=== PATIENT | female | born 1980 | race Caucasian/White ===

== ENCOUNTER 2022-04-11 15:15 | Inpatient (IN) | payer BC ==
[~2022-04-11] VITALS: Ht 157.5 cm; Wt 85.3 kg
[2022-04-11] MEDS ORDERED: LR 1,000 ML IV ONE (15:45)
[2022-04-11] MEDS ORDERED: NALBUPHINE HCL 10 MG/ML AMP IVP PRN (15:45)
[2022-04-11] MEDS ORDERED: DINOPROSTONE 10 MG SUPP VG ONE (15:45)
[2022-04-11] MEDS ORDERED: TERBUTALINE SULFATE 1 MG/ML VIAL SUBCUT ONE (15:45)
[2022-04-11] MEDS ORDERED: AMPICILLIN SODIUM 2 GM in NS 100 ML IV ONE (15:45)
[2022-04-11 16:26] LABS: BASOPHILS % (AUTO) 0.2 % (0.0-2.0); EOSINOPHILS # (AUTO) 0.1 K/uL (0.0-0.4); HEMATOCRIT 35.8 % (36-48); HEMOGLOBIN 12.3 g/dL (12.0-16.0); LYMPHOCYTES # (AUTO) 1.1 K/uL (1.0-5.5); LYMPHOCYTES % (AUTO) 13.1 % (20.5-51.5); MEAN CORPUSCULAR HEMOGLOBIN 31 pg (27-31); MEAN CORPUSCULAR HGB CONC 34 % (32-36); MEAN CORPUSCULAR VOLUME 91 fL (79.0-98.0); MONOCYTES # (AUTO) 0.4 K/uL (0.0-1.0); NEUTROPHILS # (AUTO) 6.8 K/uL (1.8-7.7); NEUTROPHILS % (AUTO) 80.7 % (40.0-70.0); PLATELET COUNT (AUTO) 174 K/uL (130-430); RED BLOOD CELL COUNT(AUTO) 3.96 MIL/uL (4.2-6.2); RED CELL DISTRIBUTION WIDTH 13.3 % (9.0-15.0); WHITE BLOOD COUNT (AUTO) 8.4 K/uL (4.8-10.8)
[2022-04-11 18:00] VITALS: BP_SYST 119
[2022-04-11] MEDS: LR 1,000 ML IV SCH ×2 (19:09→23:03)
[2022-04-11] MEDS ORDERED: TEMAZEPAM 15 MG CAPSULE PO PRN (22:15)
[2022-04-12] MEDS: OXYTOCIN/0.9 % SODIUM CHLORIDE 1,000 ML IV SCH (05:15)
[2022-04-13] MEDS: OXYTOCIN/0.9 % SODIUM CHLORIDE 1,000 ML IV SCH (03:03)
[2022-04-13] MEDS: LR 1,000 ML IV SCH (06:56)
[2022-04-13] MEDS ORDERED: fentaNYL CITRATE/PF 100 MCG/2 ML AMP ONE ×2 (13:39→20:06)
[2022-04-13] MEDS ORDERED: ROPIVACAINE HCL/PF 0.2% 200 ML ONE (13:40)
[2022-04-13] MEDS ORDERED: FENT2mCg/mL-ROPIVA0.2%/NS EPID 200 ML EP SCH (13:45)
[2022-04-13] MEDS ORDERED: DIPHENHYDRAMINE INJ 50 MG/ML VIAL IVP PRN ×2 (13:45→20:00)
[2022-04-13] MEDS ORDERED: ONDANSETRON HCL 4 MG/2 ML VIAL IVP PRN ×3 (13:45→20:00)
[2022-04-13] MEDS: AMPICILLIN SODIUM 1 GM in NS 50 ML IV SCH ×2 (14:36→18:15)
[2022-04-13] MEDS ORDERED: BUPIVACAINE /PF 0.5% 30 ML VIAL ONE (16:13)
[2022-04-13] MEDS ORDERED: CEFAZOLIN 2 GM IVPB PREMIX 50 ML IV ONE (18:30)
[2022-04-13] MEDS ORDERED: LR 1,000 ML IV SCH (19:30)
[2022-04-13] MEDS ORDERED: OXYCODONE/ACETAMINOPHEN 5-325 TABLET PO PRN (19:30)
[2022-04-13] MEDS ORDERED: TEMAZEPAM 15 MG CAPSULE PO PRN (19:30)
[2022-04-13] MEDS ORDERED: ANUSOL 1 EA SUPP.RECT (PREPARATION H) RC PRN (19:30)
[2022-04-13] MEDS ORDERED: MEASLES,MUMPS&RUBELLA VACC/PF 12500 UNIT/0.5 ML VIAL SUBQ PRN (19:30)
[2022-04-13] MEDS ORDERED: DIPHTH,PERTUSS(ACELL),TET VAC 0.5 ML VIAL (Tdap) I.M. PRN (19:30)
[2022-04-13] MEDS ORDERED: HYDROcodone/ACETAMIN 5-325 MG TAB (NORCO/ VICODIN) PO PRN (19:30)
[2022-04-13] MEDS ORDERED: RHO(D) IMMUNE GLOBULIN/MALTOSE 1500 UNITS/1.3 ML (WINHRO) IM PRN (19:30)
[2022-04-13] MEDS ORDERED: OXYCODONE/ACETAMINOPHEN *10*mg/325 mg TABLET PO PRN (19:30)
[2022-04-13] MEDS ORDERED: LANOLIN 7 GM OINT. TP PRN (19:30)
[2022-04-13] MEDS ORDERED: NALOXONE HCL 0.4 MG/ML AMP (NARCAN) IVP PRN ×3 (19:30→20:00)
[2022-04-13] MEDS ORDERED: BISACODYL 10 MG/SUPPOSITORY RC PRN (19:30)
[2022-04-13 19:43] VITALS: BP_SYST 129
[2022-04-13] MEDS ORDERED: MIDAZOLAM HCL 5 MG/ML VIAL (VERSED) IV ONE (19:50)
[2022-04-13] MEDS ORDERED: LR 1,000 ML IV.SOLN IV ONE (19:50)
[2022-04-13] MEDS ORDERED: NS IRRIG SOLN 1000 ML IR ONE (19:50)
[2022-04-13] MEDS ORDERED: BUPIVACAINE /PF 0.75% 10 ML VIAL INJ ONE (19:50)
[2022-04-13] MEDS ORDERED: MORPHINE SULFATE 10MG/10ML PF AMP ONE (19:50)
[2022-04-13] MEDS ORDERED: PROPOFOL 200MG/ 20ML VIAL (DIPRIVAN) IV ONE (19:50)
[2022-04-13] MEDS ORDERED: OXYTOCIN 10 UNIT/ML VIAL ONE (19:51)
[2022-04-13] MEDS ORDERED: MORPHINE SULFATE 10MG/10ML PF AMP SP SCH (20:00)
[2022-04-13] MEDS ORDERED: METOCLOPRAMIDE HCL 10 MG/2 ML VIAL IVP PRN (20:00)
[2022-04-13] MEDS ORDERED: NALBUPHINE HCL 10 MG/ML AMP IVP PRN (20:00)
[2022-04-13] MEDS ORDERED: fentaNYL CITRATE/PF 100 MCG/2 ML AMP IVP PRN ×2 (20:00)
[2022-04-13] MEDS ORDERED: KETOROLAC TROMETHAMINE 60 MG/2 ML VIAL IM PRN (20:00)
[2022-04-14] MEDS ORDERED: CEFAZOLIN 1 GM IVPB PREMIX 50 ML IV SCH
[2022-04-14] MEDS: AMPICILLIN SODIUM 1 GM in NS 50 ML IV SCH ×2 (00:28→05:59)
[2022-04-14] MEDS: ACETAMINOPHEN I.V. 1000 MG 100 ML IV SCH ×4 (02:51→21:15)
[2022-04-14] MEDS: KETOROLAC TROMETHAMINE 30 MG VIAL IVP SCH ×3 (05:41→18:28)
[2022-04-14] MEDS: OXYTOCIN/0.9 % SODIUM CHLORIDE 1,000 ML IV SCH ×2 (05:43→15:05)
[2022-04-14 06:46] LABS: BASOPHILS % (AUTO) 0.1 % (0.0-2.0); EOSINOPHILS % (AUTO) 0.3 % (0.0-4.0); HEMATOCRIT 30.8 % (36-48); HEMOGLOBIN 10.7 g/dL (12.0-16.0); LYMPHOCYTES # (AUTO) 1.4 K/uL (1.0-5.5); LYMPHOCYTES % (AUTO) 13.1 % (20.5-51.5); MEAN CORPUSCULAR HEMOGLOBIN 32 pg (27-31); MEAN CORPUSCULAR HGB CONC 35 % (32-36); MEAN CORPUSCULAR VOLUME 91 fL (79.0-98.0); MONOCYTES # (AUTO) 0.6 K/uL (0.0-1.0); MONOCYTES % (AUTO) 5.3 % (1.7-9.3); NEUTROPHILS # (AUTO) 8.5 K/uL (1.8-7.7); NEUTROPHILS % (AUTO) 81.2 % (40.0-70.0); PLATELET COUNT (AUTO) 141 K/uL (130-430); RED BLOOD CELL COUNT(AUTO) 3.38 MIL/uL (4.2-6.2); RED CELL DISTRIBUTION WIDTH 13.2 % (9.0-15.0); WHITE BLOOD COUNT (AUTO) 10.4 K/uL (4.8-10.8)
[2022-04-14] MEDS: DOCUSATE SODIUM 100 MG CAPSULE PO SCH ×2 (12:08→21:13)
[2022-04-14] MEDS: SIMETHICONE 80 MG TAB.CHEW PO PRN ×2 (12:08→18:27)
[2022-04-14] MEDS: SENNOSIDES/DOCUSATE SODIUM 1 TAB TABLET(SENOKOT-S) PO SCH (21:13)
[2022-04-15] MEDS: KETOROLAC TROMETHAMINE 30 MG VIAL IVP SCH (00:10)
[2022-04-15] MEDS: IBUPROFEN 600 MG TABLET PO SCH ×2 (06:37→12:34)
[2022-04-15] MEDS ORDERED: PERC10 PO (09:52)
[2022-04-15] MEDS: SENNOSIDES/DOCUSATE SODIUM 1 TAB TABLET(SENOKOT-S) PO SCH (12:33)
[2022-04-15] MEDS: DOCUSATE SODIUM 100 MG CAPSULE PO SCH (12:34)
[2022-04-15] MEDS: SIMETHICONE 80 MG TAB.CHEW PO PRN (12:34)
== END 2022-04-15 18:09 | disposition home or self-care (01) | DRG 788 ==
LOC: SPU 15:15
PROVIDERS: ADMIT Specialist; ATTEND Specialist
PROC: 10D00Z1 Extraction of Products of Conception, Low, Open Approach (ICD-10-PCS; principal; 2022-04-13 19:00)
DX: O33.9 Maternal care for disproportion, unspecified (principal); O62.2 Other uterine inertia; O69.81X0 Labor and delivery complicated by cord around neck, without compression, not applicable or unspecified; Z20.822 Contact with and (suspected) exposure to COVID-19; Z37.0 Single live birth; Z3A.40 40 weeks gestation of pregnancy
CPT/HCPCS: 36415; 81002; 85025; 86592; 86780; 86886; 86900; 86901; 94760; J0131; J0290; J0690; J1885; J2250; J2274; J2590; J2704; J3010; J3490; J7120